=== PATIENT | male | born 1955 | race Caucasian/White ===

== ENCOUNTER 2018-07-10 10:50 | Outpatient (REF) | payer BC, SELFPAY ==
[2018-07-10 13:08] LABS: Anion Gap 5.7 mmol/L (3-11); BUN 14 mg/dL (7-18); CO2 31.3 mmol/L (21.0-32.0); CREATININE 0.96 mg/dL (0.70-1.30); Chloride 103 mmol/L (98-107); Glucose 92 mg/dL (70-100); Potassium 4.5 mmol/L (3.5-5.1); Sodium 140 mmol/L (136-145)
== END 2018-07-10 11:10 ==
LOC: NCHCN 10:50
PROVIDERS: PCP Internal Medicine; Visit Provider Internal Medicine
DX: I10 Essential (primary) hypertension (principal); R07.89 Other chest pain; F90.0 Attention-deficit hyperactivity disorder, predominantly inattentive type
CPT/HCPCS: 80048

== ENCOUNTER 2019-12-25 17:36 | Outpatient (REF) | payer OTHER, SELFPAY ==
[2019-12-25 21:24] LABS: Anion Gap 10.2 mmol/L (3-11); BUN 21 mg/dL (7-18); CO2 26.8 mmol/L (21.0-32.0); CREATININE 0.94 mg/dL (0.70-1.30); Calcium 9.9 mg/dL (8.5-10.1); Chloride 105 mmol/L (98-107); Glucose 110 mg/dL (74-106); Potassium 4.3 mmol/L (3.5-5.1); Sodium 142 mmol/L (136-145)
[2019-12-25 21:34] LABS: Hemoglobin A1C 5.8 % (<5.7)
== END 2019-12-25 17:56 ==
LOC: NCHCN 17:36
PROVIDERS: PCP Internal Medicine; Visit Provider Internal Medicine
DX: I10 Essential (primary) hypertension (principal); E78.00 Pure hypercholesterolemia, unspecified; M17.9 Osteoarthritis of knee, unspecified; F41.8 Other specified anxiety disorders; E66.9 Obesity, unspecified; Z00.00 Encounter for general adult medical examination without abnormal findings
CPT/HCPCS: 80048; 83036

== ENCOUNTER 2020-12-23 10:16 | Outpatient (REF) | payer OTHER, SELFPAY ==
[2020-12-23 15:03] LABS: Calculated LDL 183 mg/dL (<100); Cholesterol 253 mg/dL (<200); HDL Cholesterol 41 mg/dL (40-60); Triglyceride 148 mg/dL (<150)
== END 2020-12-23 10:17 | disposition home or self-care (01) ==
LOC: NCHCN 10:16
PROVIDERS: PCP Internal Medicine; Visit Provider Internal Medicine
DX: R73.03 Prediabetes (principal); E78.00 Pure hypercholesterolemia, unspecified
CPT/HCPCS: 80061; 83036

== ENCOUNTER 2020-12-29 00:22 | Outpatient (CLI) | payer OTHER, SELFPAY ==
--- NOTE | 2020-12-29 08:00 | ETT_ITS ---
APPROVED REPORT Exam: Exercise Treadmill Patient Location: Out-Patient Room/Bed: Stress Nurse: Evelin Ward RN Ordering Provider:TREVOR NATHAN, Contact Number: [phone] BMI: 33.90 Baseline Rhythm: Sinus Rhythm Comment: inverted T waves in leads III, V5, V6 Indications: EXERTIONAL CHEST PAIN Medical History Medical History: HTN, HLD, Pre-DM, Obesity, ADD, Depression, Anxiety, Exertional CP Cardiac Medications: Aspirin, Ritalin, Allergies: Pravastatin, Atorvastatin, Simvastatin Cardiac Risk Factors: FHX of CAD, HTN, Hyperlipidemia, DM (pre), Obesity Previous Cardiac Procedures: None Pretest Chest Pain Characteristics: No chest pain Exercise History: Sedentary Physical Disabilities: None Lung Sounds: Clear to auscultation, diminished upper airways Heart Sounds: Regular Stress Test Details Test: Exercise stress testing was performed using a Carson protocol. Rest Stress HR Resting HR Supine: 60 bpm Max Heart Rate (APMHR): 157 bpm Resting HR Standin bpm Target HR (85% APMHR): 133 bpm Max HR Achieved: 146 bpm % of APMHR: 92 Recovery HR: 89 bpm HR response to stress: Normal HR response to stress BP Resting BP Supine: 142/78 mmHg Resting BP Standin/76 mmHg Max BP: 200/84 mmHg Recovery BP: 136/72 mmHg BP response to stress: Normal blood pressure response to stress. ECG Resting ECG: Sinus Rhythm, borderline right axis deviation Ectopy: None Comment: inverted T waves in leads III, V5, V6 Stress ECG: Sinus Tachycardia ST Change: Horizontal ST depression, Downsloping ST depression Lead(s): II, aVF, V4 Stage: [address] Deviation: 2 mm Arrhythmia: unifocal PVCs, PACs Comment: deepening T wave inversions in leads III, V5, V6 Lead(s): II, aVF, V4 Recovery ST Deviation: 3 mm Recovery Arrhythmia: PVCs, PACs, burst of bigeminal PACs Comment: deepening T wave inversions in leads III, V5, V6; T wave changes returning to baseline by mi nute 15 into recovery period. Clinical Reason for Termination: Fatigue Stress Symptoms: Dyspnea, General Fatigue Exercise duration: 09 min07 sec Highest Stage Reached: Stage 4: 4.2 mph at 16% grade. Exercise capacity: 10.34 METs Jaramillo Treadmill Score: -6 Rate Pressure Product: [id number] Stress ECG Conclusion 1. Resting electrocardiogram showed nondiagnostic ST-T abnormality 2. Patient exercised on the Acrson protocol and completed a workload of 10.34 METS, limited by fatigue and shortness of breath. 3. Normal heart rate and blood pressure response to exercise. The patient achieved 92% of predicted heart rate for age 4. Electrocardiographically there was approximately 1.5 to [address] depression noted in the inferio r and anterolateral leads at peak exercise. In recovery the patient developed more prominent inferio r and anterolateral ST-T abnormalities which persisted through minute 15 of recovery. This is consis tent with myocardial ischemia 5. Atrial and ventricular ectopy was described 6. Suggest repeat with imaging if clinically indicated Jaramillo Treadmill Score is -6 which is Moderate risk. Stress Test Summary STAGE Time (mins) Speed (mph) Grade (%) HR BP SYMPTOMS METS Supine 60 142/78 Standing 68 143/76 1 3 1.7 10 117 162/82 4.6 2 6 2.5 12 135 168/86 7 3 9 3.4 14 146 mod SOB 10.2 1 min recovery 132 182/72 3 min recovery 103 200/84 6 min recovery 94 172/80 9 min recovery 90 142/74 12 min recovery 89 136/72
== END 2020-12-29 00:42 ==
PROVIDERS: PCP Internal Medicine; Visit Provider Internal Medicine
DX: R07.89 Other chest pain (principal); Z82.49 Family history of ischemic heart disease and other diseases of the circulatory system; I10 Essential (primary) hypertension; E78.5 Hyperlipidemia, unspecified; R73.03 Prediabetes; E66.9 Obesity, unspecified; I49.3 Ventricular premature depolarization; I49.1 Atrial premature depolarization
CPT/HCPCS: 93017

== ENCOUNTER 2021-01-15 00:54 | Outpatient (CLI) | payer OTHER, SELFPAY ==
--- NOTE | 2021-01-15 09:15 | DI.NM_ITS ---
APPROVED REPORT Exam: Exercise Treadmill Patient Location: Out-Patient Room/Bed: Stress Nurse: Evelin Ward RN Ordering Provider:TREVOR NATHAN, Contact Number: BMI: 33.90 Baseline Rhythm: Sinus Rhythm Comment: w/ PACs Indications: Positive cardiac stress test, Exertional chest pain Medical History Medical History: Prediabetes, HTN, Hypercholesterolemia, Obesity, ADHD, Arthritis, Depression, Anxiet y Cardiac Medications: Aspirin, Rosuvastatin Allergies: Simvastatin, Atorvastatin, Pravastatin Cardiac Risk Factors: HTN, Hyperlipidemia, DM, FHX of CAD, Obesity Previous Cardiac Procedures: None Pretest Chest Pain Characteristics: No chest pain Exercise History: Sedentary Physical Disabilities: None Lung Sounds: Clear to auscultation Heart Sounds: Regular Stress Test Details Test: Exercise stress testing was performed using a Carson protocol. Nuclear Acquisition: Rest Tc-99m/Stress Tc-99m 1 day Rest Isotope: Tc-99m Sestamibi. Dose: 11.0 Date: 01/15/2021 Injection Time: 0945 Stress Isotope: Tc-99m Sestamibi. Dose: 47.5 Date: 01/15/2021 Injection Time: 1140 HR Resting HR Supine: 60 bpm Max Heart Rate (APMHR): 157.112857 bpm Resting HR Standin bpm Target HR (85% APMHR): 133.976441 bpm Max HR Achieved: 146 bpm % of APMHR: 92.99 Recovery HR: 90 bpm HR response to stress: Normal HR response to stress BP Resting BP Supine: 170/82 mmHg Resting BP Standin/74 mmHg Max BP: 210/82 mmHg Recovery BP: 138/70 mmHg BP response to stress: Normal blood pressure response to stress. ECG Resting ECG: Sinus Rhythm Ectopy: PACs Stress ECG: Sinus Tachycardia ST Change: Horizontal ST depression Lead(s): II, III, aVF, V6 Stage: [address] Deviation: 1-2 mm Arrhythmia: PVCs and PACs Recovery ECG: Sinus Rhythm Recovery ST Change: Horizontal ST depression Lead(s): II, III, aVF, V6 Recovery ST Deviation: 1-2 mm Recovery Arrhythmia: PACs Comment: ST depressions returning to baseline after 15 min into recovery period Clinical Reason for Termination: Fatigue Stress Symptoms: General Fatigue Exercise duration: 9 min59 sec Highest Stage Reached: Stage 4: 4.2 mph at 16% grade. Exercise capacity: 11.76 METs Jaramillo Treadmill Score: 8.7 Rate Pressure Product: 04013 Stress ECG Conclusion 1. The resting electrocardiogram showed poor R wave progression 2. Patient exercised on the Carson protocol and completed a workload of 11.76 METS, stopping due to fa tigue 3. Normal heart rate and blood pressure response to exercise. Patient achieved 92% of predicted hear t rate for age 4. Electrocardiographically the test was consistent with myocardial ischemia, with ST depression note d in the inferior and anterolateral leads at peak exercise which became downsloping in recovery 5. Sporadic atrial and ventricular ectopic beats seen Jaramillo Treadmill Score is 8.7 which is Low risk. Stress Test Summary STAGE Time (mins) Speed (mph) Grade (%) HR BP SYMPTOMS METS Supine 60 170/82 Standing 71 160/74 1 3 1.7 10 101 180/78 4.6 2 6 2.5 12 115 204/74 7 3 9 3.4 14 140 210/82 10.2 1 min recovery 129 192/62 3 min recovery 108 204/78 6 min recovery 95 178/72 9 min recovery 92 138/70 12 min recovery 90 Patient does not endorse any symptoms during treadmill test or during recovery period. MPI Conclusion Normal myocardial perfusion. No evidence of ischemia or prior infarction EF 57%, normal wall motion Radiologist Interpretation Radiologist agrees with Signal Worker Helper's Interpretation. Radiologist Interpretation by: Shine Cai MD Interpretation Date/Time: 01/16/2021 08:42:14
== END 2021-01-15 01:14 ==
PROVIDERS: PCP Internal Medicine; Visit Provider Internal Medicine
DX: R94.39 Abnormal result of other cardiovascular function study (principal); I49.1 Atrial premature depolarization; I10 Essential (primary) hypertension; E78.5 Hyperlipidemia, unspecified; E11.9 Type 2 diabetes mellitus without complications; Z82.49 Family history of ischemic heart disease and other diseases of the circulatory system; E66.9 Obesity, unspecified; Z68.33 Body mass index [BMI] 33.0-33.9, adult; I25.5 Ischemic cardiomyopathy; I49.3 Ventricular premature depolarization
CPT/HCPCS: 78452; 93017

== ENCOUNTER 2021-12-21 13:21 | Outpatient (REF) | payer OTHER, SELFPAY ==
--- OUTSIDE RECORDS SUMMARY | 2021-12-21 13:39 | XMS_ITS | Clinical Summary ---
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
--- OUTSIDE RECORDS SUMMARY | 2021-12-21 13:39 | XMS_ITS | Encounter Summary ---
:1955 Author Organization [facility] Address [address] [place] [address] Care Team Providers Name Role Phone Antonio Soriano MD Primary Care Provider Encounter Details Date Type Department Care Team Description 08/04/2015 Hospital Encounter [facility] [place], [place] [address] [facility] [address] [place] [address] [place] [address] Social History Tobacco Use Types Packs/Day Years Used Date Never Assessed Sex Assigned at Date Recorded Not on file documented as of this encounter Discharge Diagnoses Diagnosis Z01.89 Encounter for other specified spe cial examinations-Z01.89[ICD-10-CM] documented in this encounter Discharge Disposition Disposition Code Departure Means Destination Auto Discharge Home documented in this encounter Plan of Treatment Not on filedocumented as of this encounter Procedures Procedure Name Priority Date/Time Associated Diagnosis Comme nts CERVICAL SPINE 4 OR 08/04/2015 17:27 Resu lts for this MORE VIEWS EDT procedure are i n the results section. documented in this encounter Results CERVICAL SPINE 4 OR MORE VIEWS (08/04/2015 17:27 EDT) Anatomical Region Laterality Modality Other Specimen Narrative [facility] - 08/04/2015 17:40 EDT CERVICAL SPINE 4 OR MORE VIEWS ??08/04/2015 5:27 PM Signs and Symptoms/Comments: ?? NECK PAIN, RIGHT. 6 views of the cervical spine are review ed without comparisons. FINDINGS: There is a grade 1 anterolisth esis of C3 on C4. ??There are marked hypertrophic degenerative changes at C5-6 where there are both prominent anterior and small gas distribution supervisor ior osteophytes. ??There is marked disc space narrowing at C5-6 and, partially visible, and C6-7. ??Oblique views demonstrate minima l foraminal encroachment at C6-7 on the right. ??Visualized cervical soft tissues are unremarkable. IMPRESSION: Marked spondylitic changes a t C5-C6-C7. Procedure Note Pool Norris MD - 08/04/2015 CERVICAL SPINE 4 OR MORE VIEWS 08/04/2015 5:27 PM Signs and Symptoms/Comments: NECK PAIN, RIGHT. 6 views of the cervical spine are review ed without comparisons. FINDINGS: There is a grade 1 anterolisth esis of C3 on C4. There are marked hypertrophic degenerative changes at C5-6 where there are both prominent anterior and small gas distribution supervisor ior osteophytes. There is marked disc space narrowing at C5-6 and, partially visible, and C6-7. Oblique views demonstrate minimal foraminal encroachment at C6-7 on the right. Visualized cervical s oft tissues are unremarkable. IMPRESSION: Marked spondylitic changes a t C5-C6-C7. 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
[2021-12-21 19:09] LABS: Estimated GFR 84.05 (mL/min/1.73m2)
== END 2021-12-21 13:22 | disposition home or self-care (01) ==
LOC: NCHCN 13:21
PROVIDERS: PCP Internal Medicine; Visit Provider Internal Medicine
DX: Z20.89 Contact with and (suspected) exposure to other communicable diseases (principal)
CPT/HCPCS: 82565

== ENCOUNTER 2022-01-05 11:06 | Outpatient (REF) | payer OTHER, SELFPAY ==
[2022-01-05 16:46] LABS: ALT 54 U/L (16-63); AST 29 U/L (15-37); Albumin 4.1 g/dL (3.4-5.0); Alkaline Phosphatase 128 U/L (46-116); Anion Gap 9.6 mmol/L (3-11); BUN 16 mg/dL (7-18); Bilirubin, Total 0.6 mg/dL (0.2-1.0); CO2 25.4 mmol/L (21.0-32.0); Calcium 9.4 mg/dL (8.5-10.1); Calculated LDL 225 mg/dL (<100); Chloride 104 mmol/L (98-107); Cholesterol 291 mg/dL (<200); Estimated GFR 84.05 (mL/min/1.73m2); Glucose 102 mg/dL (74-106); HDL Cholesterol 45 mg/dL (40-60); Potassium 4.6 mmol/L (3.5-5.1); Sodium 139 mmol/L (136-145); Total Protein 7.3 g/dL (6.4-8.2); Triglyceride 107 mg/dL (<150)
[2022-01-05 22:59] LABS: PSA, Screening 0.5 ng/mL (<=4.5)
== END 2022-01-05 11:07 | disposition home or self-care (01) ==
LOC: NCHCN 11:06
PROVIDERS: PCP Internal Medicine; Visit Provider Internal Medicine
DX: Z00.00 Encounter for general adult medical examination without abnormal findings (principal); I10 Essential (primary) hypertension; R73.03 Prediabetes; F41.8 Other specified anxiety disorders; F90.0 Attention-deficit hyperactivity disorder, predominantly inattentive type; E66.9 Obesity, unspecified; Z12.5 Encounter for screening for malignant neoplasm of prostate
CPT/HCPCS: 80053; 80061; 84153; 83036

== ENCOUNTER 2022-05-21 08:46 | Day surgery (SDC) | payer OTHER, SELFPAY ==
--- NOTE | 2022-05-20 20:05 | PDOC.DSDIS_ITS ---
Date of service: 05/21/22 Time of Service: 12:55 Discharge Plan Disposition Patient Disposition: Home Condition: Good Discharge Details Reason For Visit: Left inguinal hernia repair Attending Provider: Feliberto Yeboah Primary Care Provider: Antonio Soriano Home Meds and New Rx's Prescriptions: New tramadol 50 mg tablet 50 mg PO Q8H PRNQty: 12 0RF Rx Instructions: Take 1 tablet by mouth up to every 8 hours as needed for severe pain. Do not drive while using this medication. Continued Caltrate + D3 Plus Minerals 300 mg-800 unit -25 mg-0.5 mg tablet 1 tab PO DAILY aspirin [Adult Aspirin Regimen] 81 mg tablet,delayed release (DR/EC) 81 mg PO DAILY betamethasone valerate 0.1 % cream 1 applic topical BID PRN ketoconazole 2 % cream 1 applic topical BID pyridoxine (vitamin B6) 100 mg tablet 100 mg PO DAILY ascorbate calcium (vitamin C) 500 mg tablet 500 mg PO DAILY methylphenidate HCl [Ritalin] 20 mg tablet 20 mg PO TID naproxen [EC-Naprosyn] 500 mg tablet,delayed release (DR/EC) 500 mg PO BID cod liver oil Capsule 1 cap PO DAILY multivitamin Tablet 1 tab PO DAILY rosuvastatin 20 mg tablet 20 mg PO DAILY Patient Comments: TAKE ONE TABLET BY MOUTH EVERY DAY Discharge Instructions Additional Instructions: Aristeo, we were able to repair your hernia without any difficulty today. The operation went smoothly. You will notice some increased pain over the next day or 2. Do not be alarmed by this. I have included a prescription to help with pain if Tylenol and ibuprofen are insufficient. If you need anything at all, please do not hesitate to contact us. Otherwise we will see you in the office in routine follow-up on the . 1. Resume all of your medications. 2. Okay to use tylenol and ibuprofen over the counter as needed. Use tramadol as needed for severe pain. 3. Leave bandage in place for 24 hours, then remove. 4. Shower with warm soapy water. Pat dry. Use a bandaid if needed to protect your clothing. 5. No soaking or tub baths until I see you in the office. 6. No heavy lifting until I see you in the office. 7.Call the office (or go directly to the emergency room after hours) if you notice any of the following: Develop chills (warm to touch), or if you have a thermometer and your temperature is above 101 Difficulty breathing or difficultly swallowing Persistent vomiting Any bleeding ? exceeding one tablespoon 8. Call your physician if the site where your intravenous was started becomes red, swollen, painful, and warm to touch. Stand Alone Forms: Олег Schultz (DSU) Referrals: Feliberto Yeboah MD [ [facility] ST[facility]FF PHYSICIAN] - (June 02 at 7:30 AM) Activity:: No heavy lifting Remove Dressings/Wound Care:: 24 hours Shower/Bathe:: 24 hours Diet:: As Tolerated Discharge Orders Discharge Orders: Discharge Order (Routine); Ordered 05/20/22 Ordered By: Feliberto Yeboah DS: Diagnosis Discharge Diagnosis (1) Left inguinal hernia: Status: Acute
--- NOTE | 2022-05-20 20:08 | ROE_ITS ---
Date of service: 05/21/22 Time of Service: 12:59 Operative Note Operative Note DATE OF PROCEDURE: 05/21/22 PRE-OP DIAGNOSIS: Left inguinal hernia POST-OP DIAGNOSIS: same PROCEDURE: Left inguinal hernia repair with mesh SURGEON: Feliberto Yeboah CUSHION SPRING ASSEMBLER: Karen Hansen ANESTHESIA TYPE: Local By Surgeon and General LMA/ETT Refer to Anesthesia Record ESTIMATED BLOOD LOSS: 25 COMPLICATIONS: None Patient was transported to: PACU Patient's condition: stable Indications: Abram is a 67 year old man with a painful left inguinal hernia Procedure Description: I began by confirming the correct site with the patient. General endotracheal anesthesia was then induced, and the anesthesia specialist performed a ultrasound-guided left-sided tap block. The surgical site was then prepped and draped in the usual fashion. I began by making an oblique incision over the left inguinal region. I dissected down through the skin to the deep fascia. Next, I incised the fascia along the length of the inguinal canal to the external ring. I then carefully identified the ilioinguinal nerve and sharply divided. Once this was complete, I bluntly dissected the shelving edge of the inguinal ligament down towards the pubic tubercle. Here, I encircled all cord structures with a Tyesha drain. Next, I began dissecting the specific cord structures. Great care was taken to spare the vas deferens and the blood supply to the testicle. Next, I isolated the hernia sac from the other inguinal structures. I reduced it back to its normal anatomic position. I then used a Bard PerFix light mesh plug to obliterate the defect at the internal ring. I fixed in place with interrupted Prolene stitches. Next, I buttressed the posterior floor of the inguinal canal with a large mesh patch. I started by fixing it to the pubic tubercle. Next, I used Prolene sutures to affix it to the shelving edge of the inguinal ligament and the conjoined tendon. Laterally I tacked it to the transversalis fascia and reconstructed an internal ring without any strain on the cord structures. Once this was complete, I irrigated the surgical field. It appeared hemostatic. I then closed the anterior portion of the fascia to reconstruct the front wall of the inguinal canal. I did this with interrupted Vicryl stitches. Once again, I irrigated the surgical field and inspected for hemostasis. Finally, I approximated the superficial fascia and the deep layers of the skin with absorbable suture. Skin was closed with running subcuticular stitches. Bandages were applied, the patient was awakened and transferred to the recovery unit.
[2022-05-21] VITALS (7 sets, daily range): BP systolic 107–156; BP diastolic 60–75; PULSE 56–63; RESP 16–20; TEMP 36.2–36.6; O2SAT 94–100; BMI 33.4
[2022-05-21] MEDS: Gabapentin 300 MG CAP 600 MG PO (10:19)
[2022-05-21] MEDS: Celecoxib 200 MG CAP PO (10:20)
[2022-05-21] MEDS: Acetaminophen 500 MG TAB 1000 MG PO (10:20)
[2022-05-21] MEDS: Lactated Ringers 1,000 ML 80 ML IV (10:29)
--- NOTE | 2022-05-21 10:35 | ANES.PREOP_ITS ---
General Info Date of Service Date Performed: 05/21/22 Height: 5 ft 8 in Weight: 99.8 kg Body Mass Index (BMI): 33.4 Surgical Procedure: Operation Date: 05/21/22 11:10 Proposed Procedure Side Surgeon p Herniorrhaphy Inguinal w/Mesh Left Feliberto Yeboah MD Meds Allergies and Home Medications Allergies Allergy/AdvReac Type Severity Reaction Status Date / Time atorvastatin Allergy Mild unknown Verified 05/21/22 09:18 pravastatin [From Pravachol] Allergy Mild unknown Verified 05/21/22 09:18 simvastatin Allergy Mild unknown Verified 05/21/22 09:18 Home Medication Medication Instructions Recorded ascorbate calcium (vitamin C) 500 500 mg PO DAILY 01/14/20 mg tablet aspirin 81 mg tablet,delayed 81 mg PO DAILY 01/14/20 release (Adult Aspirin Regimen) betamethasone valerate 0.1 % 1 applic topical BID PRN 01/14/20 topical cream cod liver oil 1 cap PO DAILY 01/14/20 ketoconazole 2 % topical cream 1 applic topical BID 01/14/20 methylphenidate HCl 20 mg tablet 20 mg PO TID 01/14/20 (Ritalin) naproxen 500 mg tablet,delayed 500 mg PO BID 01/14/20 release (EC-Naprosyn) pyridoxine (vitamin B6) 100 mg 100 mg PO DAILY 01/14/20 tablet multivitamin 1 tab PO DAILY 02/01/22 calcium carb 300 mg-D3 800 1 tab PO DAILY 02/10/22 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 0.5 mg-ev-Zn tablet (Caltrate + D3 Plus Minerals) rosuvastatin 20 mg tablet 20 mg PO DAILY 05/19/22 Current Visit Medications: Current Medications Generic Name Dose Route Start Last Admin Trade Name Freq PRN Reason Stop Dose Admin Acetaminophen 1,000 mg 05/21/22 06:00 05/21/22 10:20 Acetaminophen 500 Mg Tab PO 06/20/22 23:59 1,000 mg PREOP MADDIE Administration Celecoxib 200 mg 05/21/22 06:00 05/21/22 10:20 Celecoxib 200 Mg Cap PO 06/20/22 23:59 200 mg PREOP MADDIE Administration Gabapentin 600 mg 05/21/22 06:00 05/21/22 10:19 Gabapentin 300 Mg Cap PO 05/21/22 16:00 600 mg PREOP MADDIE Administration Ringer's Solution 1,000 mls @ 80 mls/hr 05/21/22 06:00 05/21/22 10:29 IV 05/21/22 23:59 80 mls/hr INFUSION MADDIE Administration Cefazolin Sodium/Dextrose 2 gm in 50 mls @ 100 mls/hr 05/21/22 06:00 Ancef Duplex IVPB 05/21/22 23:59 PREOP MADDIE IV Miscellaneous Supplies 1 each 05/21/22 06:00 Iv Access IV 05/21/22 23:59 DIRECTED MADDIE Morphine Sulfate 2 mg 05/20/22 20:10 Morphine 4 Mg/Ml Syr IVP Q1H PRN PRN Sodium Chloride 0 ml 05/21/22 06:00 Normal Saline Flush 10 Ml Syr IV 05/21/22 23:59 PRN PRN Sodium Chloride 0 ml 05/21/22 06:00 Normal Saline 10 Ml Vial IJ 05/21/22 23:59 DIRECTED PRN Sterile Water 0 ml 05/21/22 06:00 Water,Injection,Sterile 10 Ml Vial IJ 05/21/22 23:59 DIRECTED PRN Tramadol HCl 100 mg 05/20/22 20:10 Tramadol 50 Mg Tab PO Q6H PRN PRN Pain PFSH Active Problems Active Problems: Problem Status Onset Code ADHD F90.9 Arthritis M19.90 Prediabetes R73.03 Screening for colon cancer Z12.11 Skin lesion L98.9 Hemorrhoids K64.9 Obesity E66.9 Hypertension I10 Hypercholesterolemia E78.00 Left inguinal hernia K40.90 Depression F32.A Medical History Medical History Exertional chest pain History of exposure to infectious disease Positive cardiac stress test Surgical History Surgical History (Updated 05/21/22 @ 09:17 by Gisella Barber RN) History of colonoscopy (~07/25/09) Hx of appendectomy S/P tonsillectomy Tobacco Smoking/Tobacco Use Status: Never Alcohol Alcohol Intake: current Alcohol intake frequency: a few times a week Alcohol type: beer Substance Use Substance use: Never Substance use type: does not use Vital Signs and Lab Results Vital Signs Most Recent Vital Signs in EMR: Most Recent Vital Signs Temp Pulse Resp BP Pulse Ox 36.6 C 60 18 156/70 H 97 05/21/22 08:51 05/21/22 08:51 05/21/22 08:51 05/21/22 08:51 05/21/22 08:51 Lab Results Blood Type / Crossmatch: No Data to Display Complete Blood Count: No Data to Display Complete Metabolic Panel: No Data to Display Liver Function Panel: No Data to Display Coagulation Panel: No Data to Display Cardiac Panel: No Data to Display Arterial Blood Gas: No Data to Display Venous Blood Gas: No Data to Display Pancreas Panel: No Data to Display Thyroid Panel: No Data to Display Infectious Disease: No Data to Display Blood Cultures: No Data to Display Toxicology Panel: No Data to Display Imaging and Studies Imaging and Studies Study information below may be from another EMR and interpreted by another provider. Please see original notes in EMR for more complete details. Stress Test Summary: 01/15/21: poor r wave progression, ~12 METS. 92% of predicted HR achieved. ECG consistent with ischemia with ST depression noted in the inferior and anterolateral leads. Jaramillo score of 8.7/low risk. MPI with no signs of ischemia or infarction, LVEF 57%. Anesthesia Assessment and Plan Anesthesia History Personal History: No History of Anesthesia Complications Family History: No Family History of Anesthesia Complications Exercise Tolerance Exercise Tolerance: Metabolic Equivalents>4 Cardiac & Pulmonary Exam Cardiac Exam: Normal S1/S2 Heart Sounds Pulmonary Exam: Clear Bilateral Breath Sounds Implantable Cardiac Device Does patient have a Pacemaker or an ICD?: No Airway Exam Known Difficult Airway: No Mallampati Class: 2 Mouth Opening: Normal (> 3cm) Thyromental Distance: Greater than 3 cm Facial Hair: Full Caicedo Neck Range of Motion: Full ROM Neck Circumference: Thick Teeth Condition: Normal Dentition ASA Classification ASA Score: ASA 2 Emergency Case?: No NPO Status NPO Status: NPO Clears >2 hours, Solids >8 hours Anesthesia Plan Resuscitation Status: Full Code Anesthesia Technique: General Anesthesia Airway Planned: LMA Pain Management: Surgeon and patient request nerve block Monitors Used: Standard Monitors Preoperative Comments:: 67 yo male for hernia repair. Sig PMHx: exertional chest pain (had a stress test with positive ECG, and an MPI was performed with no evidence of ischemia, he states no further testing was advised and he was started on a statin. His chest pain is on the right side (had some yesterday) and primarily occurs at rest but can happen with exertion), preDM (A1c 6.0%), HTN (does not appear to be on medication for this), depression/ADHD (methylphenidate). Denies GERD (typically only with certain foods). Plan: GA, +/- nerve block.
[2022-05-21] MEDS: ceFAZolin 2 GM/50 ML BAG IVPB (11:27)
[2022-05-21] MEDS: Bupivacaine 0.25% Pres-Free W/EPI 30 ML VIAL (11:41)
--- NOTE | 2022-05-21 12:29 | W.ANESNERVE ---
Nerve Block Single Injection Procedure Date and Time Date Performed: 05/21/22 Procedure Start: 11:28 Location Where Procedure Performed Procedure Location: Operating Room Procedure Stop: 11:37 Reason Performed: Postoperative Analgesia Requesting Provider: Feliberto Yeboah Timeout Performed Timeout Performed: Yes Monitoring Used ECG, Blood Pressure, SpO2 and ETCO2 Sterility Sterility: Hand Hygiene, Surgical Cap, Surgical Mask, Sterile Gloves and Chlorhexidine Sedation Given During Procedure Sedation Given (Indicate Dose Given): No Sedation given Patient Mental Status Patient Mental Status: Performed under general anesthesia Nerve Block 1st Nerve Block: Laterality: Left Block Type: TAP Unilateral Ultrasound Image Saved?: Yes Needle / Catheter Used: 100mm SonoPlex II Local Anesthetic Bolus (Indicate Dose Given): Bupivacaine 0.25% Dose:: 30 ml Additives (Indicate Dose Given): None Ultrasound: Sterile probe cover and gel used Nerve Stimulator: Not Used Paresthesia: None Procedure Tolerated: No Complications and Patient tolerated well Procedure Outcome: Successful Performed By: Braden Hanna
--- NOTE | 2022-05-21 13:34 | W.ANESPOSTOP ---
Postoperative Evaluation Date, Time and Location Date Performed: 05/21/22 Time Performed: 13:34 Patient Location: PACU Vital Signs Most Recent Imported Vital Signs: Most Recent Vital Signs Temp Pulse Resp BP Pulse Ox 36.4 C L 57 L 18 141/60 H 97 05/21/22 13:20 05/21/22 13:20 05/21/22 13:20 05/21/22 13:20 05/21/22 13:20 Pain Score Most Recent Pain Score: Most Recent Pain Score Pain Level 1 05/21/22 13:20 Assessment Mental Status: Awake (Alert & Oriented to Patient Baseline) Airway and Respiratory Function: Patent airway with normal (patient baseline) respiratory exam Cardiovascular Function: Hemodynamically Stable Hydration Status: Adequately Hydrated Nausea & Vomiting: No Nausea or Vomiting Pain: Pain is tolerable per patient Peripheral Nerve Block: Regional nerve block not resolved at time of post operative discharge
== END 2022-05-21 14:33 | disposition home or self-care (01) ==
PROVIDERS: PCP Internal Medicine; Visit Provider Surgery
PROC: (CPT 49505; principal; 2022-05-21 11:00)
DX: K40.90 Unilateral inguinal hernia, without obstruction or gangrene, not specified as recurrent (principal)
CPT/HCPCS: 49505; 76942; C1781; J0690; J1100; J2405; J2704; J3010

== ENCOUNTER 2022-05-24 17:18 | Outpatient (REF) | payer OTHER, SELFPAY ==
[2022-05-24 15:35] LABS: Calculated LDL 72 mg/dL (<100); Cholesterol 164 mg/dL (<200); HDL Cholesterol 47 mg/dL (40-60); Triglyceride 225 mg/dL (<150)
== END 2022-05-24 17:19 | disposition home or self-care (01) ==
LOC: NCHCN 17:18
PROVIDERS: PCP Internal Medicine; Visit Provider Internal Medicine
DX: E78.00 Pure hypercholesterolemia, unspecified (principal)
CPT/HCPCS: 80061

== ENCOUNTER 2023-03-24 14:08 | Outpatient (REF) | payer OTHER, SELFPAY ==
[2023-03-24 21:11] LABS: Anion Gap 4.9 mmol/L (3-11); BUN 19 mg/dL (7-18); CO2 31.1 mmol/L (21.0-32.0); CREATININE 1.1 mg/dL (0.70-1.30); Calcium 9.1 mg/dL (8.5-10.1); Chloride 106 mmol/L (98-107); Estimated GFR 74.04 (mL/min/1.73m2); Glucose 134 mg/dL (74-106); Potassium 5.3 mmol/L (3.5-5.1); Sodium 142 mmol/L (136-145)
== END 2023-03-24 14:09 | disposition home or self-care (01) ==
LOC: NCHCN 14:08
PROVIDERS: PCP Internal Medicine; Visit Provider Family Medicine
DX: I10 Essential (primary) hypertension (principal); R73.03 Prediabetes
CPT/HCPCS: 80048; 83036

== ENCOUNTER 2023-04-11 16:14 | Outpatient (REF) | payer OTHER, SELFPAY ==
[2023-04-11 22:20] LABS: Anion Gap 8.2 mmol/L (3-11); BUN 20 mg/dL (7-18); CO2 29.8 mmol/L (21.0-32.0); CREATININE 1.1 mg/dL (0.70-1.30); Calcium 9.5 mg/dL (8.5-10.1); Chloride 104 mmol/L (98-107); Estimated GFR 74.04 (mL/min/1.73m2); Glucose 95 mg/dL (74-106); Potassium 5.3 mmol/L (3.5-5.1); Sodium 142 mmol/L (136-145)
== END 2023-04-11 16:15 | disposition home or self-care (01) ==
LOC: NCHCN 16:14
PROVIDERS: PCP Internal Medicine; Visit Provider Family Medicine
DX: E87.5 Hyperkalemia (principal); I10 Essential (primary) hypertension
CPT/HCPCS: 80048

== ENCOUNTER 2023-06-29 09:51 | Outpatient (REF) | payer OTHER, SELFPAY ==
[2023-06-29 15:15] LABS: Anion Gap 11.6 mmol/L (3-11); BUN 19 mg/dL (7-18); CO2 25.4 mmol/L (21.0-32.0); CREATININE 1.1 mg/dL (0.70-1.30); Calcium 9.1 mg/dL (8.5-10.1); Calculated LDL 139 mg/dL (<100); Chloride 107 mmol/L (98-107); Cholesterol 210 mg/dL (<200); Estimated GFR 74.04 (mL/min/1.73m2); Glucose 147 mg/dL (74-106); HDL Cholesterol 45 mg/dL (40-60); Potassium 4.2 mmol/L (3.5-5.1); Sodium 144 mmol/L (136-145); Triglyceride 134 mg/dL (<150)
== END 2023-06-29 09:52 | disposition home or self-care (01) ==
LOC: NCHCN 09:51
PROVIDERS: PCP Internal Medicine; Visit Provider Family Medicine
DX: I10 Essential (primary) hypertension (principal); E78.00 Pure hypercholesterolemia, unspecified
CPT/HCPCS: 80048; 80061

== ENCOUNTER 2023-07-07 05:02 | Outpatient (CLI) | payer OTHER, SELFPAY ==
[2023-07-07] MEDS: Levalbuterol HFA 15 GM INH 4 PUFF IH (09:14)
[2023-07-07] MEDS: Inhaler, Assist Device 1 EACH MC (09:14)
--- NOTE | 2023-07-08 11:15 | W.PFT ---
Date of service: 07/07/23 Time of Service: 07:57 Pulmonary Function Test Result Indications: Dyspnea on exertion Interpretation Spirometry: There is no airflow limitation. No bronchodilator response. Lung Volumes: Normal lung volumes Diffusion Capacity: Normal diffusion Airway Pressure: Normal airways resistance Impression Normal pulmonary function testing Clinical Correlation therefore is recommended.
== END 2023-07-07 05:03 | disposition home or self-care (01) ==
LOC: RT 05:02
PROVIDERS: PCP Internal Medicine; Visit Provider Family Medicine
DX: R06.00 Dyspnea, unspecified (principal)
CPT/HCPCS: 94060; 94726; 94729

== ENCOUNTER → 2023-07-14 00:48 | Outpatient (CLI) | payer OTHER, SELFPAY ==
--- NOTE | 2023-07-14 | DI.NM_ITS ---
APPROVED REPORT Exam: Exercise Treadmill Patient Location: Out-Patient Room/Bed: Stress Nurse: Carolann Obregon RN Ordering Provider:SVETA MILA, Contact Number: [phone] BMI: 33.75 Baseline Rhythm: Sinus Rhythm Indications: Chest pain with exertion , Medical History Medical History: Arthritis, depression, HLD, prediabetes, ADHD, HTN Cardiac Medications: Aspirin, losaratan, rosuvastatin Allergies: Statins Cardiac Risk Factors: HTN, HLD, prediabetes, obesity Previous Cardiac Procedures: None Pretest Chest Pain Characteristics: None Exercise History: Indeterminate Physical Disabilities: None Lung Sounds: Clear to auscultation Heart Sounds: Regular Stress Test Details Test: Exercise stress testing was performed using a Carson protocol. Nuclear Acquisition: Rest Tc-99m/Stress Tc-99m 1 day Rest Isotope: Tc-99m Sestamibi. Dose: 10.0 Date: 07/14/2023 Injection Time: 0900 Stress Isotope: Tc-99m Sestamibi. Dose: 31.0 Date: 07/14/2023 Injection Time: 1025 HR Resting HR Supine: 65 bpm Max Heart Rate (APMHR): 154.004101 bpm Resting HR Standin bpm Target HR (85% APMHR): 130.416358 bpm Max HR Achieved: 135 bpm % of APMHR: 87.66 Recovery HR: 85 bpm HR response to stress: Normal HR response to stress BP Resting BP Supine: 184/58 mmHg Resting BP Standin/50 mmHg Max BP: 222/54 mmHg Recovery BP: 176/74 mmHg BP response to stress: Normal blood pressure response to stress. ECG Resting ECG: Sinus Rhythm Ectopy: None Stress ECG: Sinus Tachycardia ST Change: Downsloping ST depression, Horizontal ST depression Lead(s): II, AVF Maximum ST Deviation: 1-2 mm Arrhythmia: Occasional PAC's, Occasional PVC's Recovery ECG: Sinus Rhythm Recovery ST Change: Horizontal ST depression, Downsloping ST depression Recovery ST Deviation: 1-2 mm Recovery Arrhythmia: Occasional PVC's, occasional PAC's Clinical Reason for Termination: Target HR Achieved, Dyspnea, Fatigue Stress Symptoms: Dyspnea, General Fatigue Exercise duration: 07 min13 sec Highest Stage Reached: Stage 3: 3.4 mph at 14% grade. Exercise capacity: 6.3 METs Angina Score: None Jaramillo Treadmill Score: 4.0 Rate Pressure Product: 92446 Stress ECG Conclusion 1. EKG showed minor nondiagnostic ST abnormalities 2. Patient exercised on the Carson protocol completed a workload of 6.3 METS 3. Normal heart rate and blood pressure response to exercise. The patient achieved 88% of predicted heart rate for age 4. At peak exercise the electrocardiographic portion of the test was negative. In recovery diffuse n ondiagnostic ST-T abnormalities were noted 5. There were no significant dysrhythmias 6. See MPI report Jaramillo Treadmill Score is 4.0 which is Moderate risk. Stress Test Summary STAGE Time (mins) Speed (mph) Grade (%) HR BP SpO2 SYMPTOMS METS Supine 65 194/82 Standing 70 180/82 1 3 1.7 10 109 4.5 2 6 2.5 12 129 7 3 9 3.4 14 133 10 1 min recovery 133 184/58 3 min recovery 99 230/50 98 6 min recovery 93 222/54 9 min recovery 85 176/74 MPI Conclusion Myocardial perfusion is normal, no evidence of ischemia or prior infarction Ejection fraction is 59%. Wall motion is normal Radiologist Interpretation Radiologist Interpretation by: Pool Yeboah MD Interpretation Date/Time: 07/15/2023 17:04:25
== END ==
PROVIDERS: PCP Family Medicine; Visit Provider Family Medicine
DX: R07.89 Other chest pain (principal); R94.31 Abnormal electrocardiogram [ECG] [EKG]
CPT/HCPCS: 78452; 93017

== ENCOUNTER 2024-03-08 08:43 | Outpatient (REF) | payer MEDICARE, SELFPAY ==
--- OUTSIDE RECORDS SUMMARY | 2024-03-08 08:45 | XMS_ITS | Encounter Summary ---
Author Organization [facility] Address [facility] [place] [address] Care Team Providers Care Sheet Roller Operator Name Role Phone Mili Segura MD Primary Care Provider [phone] Reason for Visit * Reason Comments Preoperative Cardiovascular Chest Pain Encounter Details Date Type Department Care Team (Late st Contact Info) Description 09/12/2023 9:40 AM EDT Office Visit Cardiology at [address] [address] Martin Webster MD [facility] [place] [address] Chest pain, unspecified type Social History Tobacco Use Types Packs/Day Years Used Date Smoking Tobacco: Never Smokeless Tobacco: Never Tobacco Cessation:Counseling Given: Not Answered Sex and Gender Information Value Date Recorded Sex Assigned at Not on file Gender Identity Not on file Sexual Orientation Not on file documented as of this encounter Last Filed Vital Signs Vital Sign Reading Time Taken Comments Blood Pressure 137/75 09/12/2023 9:46 AM EDT Pulse 54 09/12/2023 9:46 AM EDT per e cg Temperature - - Respiratory Rate - - Oxygen Saturation - - Inhaled Oxygen Concentration - - Weight 102.1 kg (225 lb) 09/12/2023 9:46 AM EDT Height 172.7 cm (5' 8) 09/12/2023 9:46 AM EDT Body Mass Index 34.21 09/12/2023 9:46 AM EDT documented in this encounter Progress Notes * Martin Webster MD - 09/12/2023 9:40 AM EDT Images from the original note were not included. CARDIOLOGY NEW OUTPATIENT PRIMARY CARE PROVIDER: Mili Segura MD PROBLEM LIST: Patient Active Problem List Diagnosis Chest pain 06/2023 ExNST ([facility]): 7:13. Normal HR/BP response. Resting HTN. NSSTTW changes. Scintigraphy withoutphotopenia. Wheezing Attention deficit hyperactivity disorder (ADHD) Depression Hypercholesterolemia Obesity Anxiety Prediabetes MEDICATIONS: Current Outpatient Medications Medication Instructions aspirin EC 81 mg, Oral, DAILY betamethasone valerate (VALISONE) 0.1 % Ointment Topical (Top), 2 TIMES DAILY PRN buPROPion XL (WELLBUTRIN XL) 150 mg, Oral, EVERY MORNING calcium citrate (Calcitrate) 200 mg (950 mg) tablet 1 tablet, Oral, DAILY fish oil-omega-3 fatty acids (FISH OIL) 2 g, Oral, DAILY losartan-hydroCHLOROthiazide (Hyzaar) 50-12.5 mg tablet 1 tablet, Oral, DAILY methylphenidate (RITALIN) 20 mg, Oral, 3 TIMES DAILY multivitamin (THERAGRAN) Tablet 1 tablet, Oral, DAILY naproxen (NAPROSYN) 500 mg, Oral, DAILY PRN rosuvastatin (CRESTOR) 20 mg, Oral, DAILY Subjective: Patient ID: Aristeo Jimenez is a 68 y.o. male. HPI: 68 m presents on referral from GP for chest pain. As part of the evaluation, stress testing has been performed with results as above He states about a year ago he was started on toprol (perhaps for BP and atypical chest pain). [place], he has noted a ccs ii angina that dissiaptes after ~ 30 seconds of rest. On days he does not take toprol (about 50% of the time), he feels much better and in fact has less chest pain. He is approaching fdc, and plans to travel within the [place] afterwards Doesn't check bp at home often + fingers get discolored and feel cold, especially as time to next Ritalin dose comes about Objective: Patient Vitals for the past 24 hrs: Pulse BP 09/12/23 0946 54 137/75 Gen: pleasant male in NAD Cor: rrr, s1/s2 of nl character and amplitude, no pathologic m/r/g. Estimated RAP not elevated. Carotids without bruit. Pulm: CTAB. Normal diaphragmatic movement without use of accessory muscles EKG: nsr, IMI pattern Assessment and Plan: Chest pain Seems rather typical by description (comes about with activity , dissipates with rest); however, itworsening since toprol was started and the non-ischemic NST (I posit the EKG changes were from HTN since the scintigraphyIn was normal) would suggest against obstructive disease. Regardless, I think the first step is to discontinue the toprol, since it has not caused any beneficial effects. He will keep a BP log, and will likely initiate norvasc as next step. In the meantime, reasonable to continue empiric treatment of SIHD with ASA/statin. If chest pain continues, would have a low threshold ofstopping the Ritalin, especially since it is likely provoking some degree of Raynaud's phenomenon. RTC 3 months Martin Webster MD documented in this encounter Miscellaneous Notes * Assessment & Plan Note - Martin Webster MD - 09/12/2023 10:17 AM EDT Associated Problem(s): Chest pain Seems rather typical by description (comes about with activity , dissipates with rest); however, itworsening since toprol was started and the non-ischemic NST (I posit the EKG changes were from HTN since the scintigraphyIn was normal) would suggest against obstructive disease. Regardless, I think the first step is to discontinue the toprol, since it has not caused any beneficial effects. He will keep a BP log, and will likely initiate norvasc as next step. In the meantime, reasonable to continue empiric treatment of SIHD with ASA/statin. If chest pain continues, would have a low threshold ofstopping the Ritalin, especially since it is likely provoking some degree of Raynaud's phenomenon. documented in this encounter Plan of Treatment Not on file documented as of this encounter Procedures Procedure Name Priority Date/Time Associated Diagnosis Comments ECG SCAN 09/12/2023 12:00 AM EDT documented in this encounter Results * Scan Doc: ECG (09/12/2023 12:00 AM EDT) Narrative 09/12/2023 12:00 AM EDT Ordered by an unspecified provider. Scanning Provider MEDIA MGR SCAN EXT O RDR/RSLT documented in this encounter Visit Diagnoses Diagnosis Chest pain, unspecified type documented in this encounter Care Teams Sheet Roller Operator Relationship Specialty Start Date End Date Mili Segura MD [address] [place] [address] PCP - General Family Medicine 09/12/23 documented as of this encounter
--- OUTSIDE RECORDS SUMMARY | 2024-03-08 08:45 | XMS_ITS | Encounter Summary ---
Author Organization [place] [address] Care Team Providers Care Finance Mgr Name Role Phone Mili Segura MD Primary Care Provider [phone] Encounter Details Date Type Department Care Team (Late st Contact Info) Description 01/17/2024 Telephone Cardiology at [address] [address] Krystina Trejo, RN Social History Tobacco Use Types Packs/Day Years Used Date Smoking Tobacco: Never Smokeless Tobacco: Never Sex and Gender Information Value Date Recorded Sex Assigned at Not on file Gender Identity Not on file Sexual Orientation Not on file documented as of this encounter Miscellaneous Notes * Telephone Encounter - Tana Coleman RN - 01/19/2024 10:[address] Webster- OK to continue on norvasc 10. If continues with significant symptoms that prohibit exertion, next step would be cardiac catheterization Relayed above to Aristeo who verbalized understanding. * Telephone Encounter - Krystina Trejo, RN - 01/17/2024 2:15 PM EDT Aristeo called in to give Dr. Webster an update as he was directed to after 4 weeks of med adjustment At last OV he was instructed to increase amlodipine 5 mg to 7.5 mg daily for 2 weeks. He noticed slight improvement in the intensity of symptoms: chest pain, shortness of breath, racingheart Then he increased amlodipine to 10.0 mg daily for the following 2 weeks. He noticed more improvement/ less severity of symptoms: chest pain, shortness of breath, racing heart He acknowledged he understands that Dr. Webster instructed him that this change was not correcting the diagnosed problem of blocked vessel- just relieving symptoms. Please advise documented in this encounter Plan of Treatment Not on file documented as of this encounter Visit Diagnoses Not on filedocumented in this encounter Care Teams Finance Mgr Relationship Specialty Start Date End Date Mili Segura MD [address] [place] [address] PCP - General Family Medicine 09/12/23 documented as of this encounter
--- OUTSIDE RECORDS SUMMARY | 2024-03-08 08:45 | XMS_ITS | Encounter Summary ---
Author Organization [facility] Address [address] [place] [address] Care Team Providers Care Patrol Officer Name Role Phone Antonio Soriano MD Primary Care Provider [phone] Encounter Details Date Type Department Care Team (Latest Contact Info) Description 08/04/2015 16:21 EDT - 08/04/2015 23:59 EDT Hospital Encounter [facility] [address] [place] [address] Antonio Soriano MD [address] [place], [place] [id number] Discharge Disposition: Auto Discharge Social History Tobacco Use Types Packs/Day Years Used Date Smoking Tobacco: Never Assessed Sex and Gender Information Value Date Recorded Sex Assigned at Not on file Legal Sex Male 18:16 EST Gender Identity Not on file Sexual Orientation Not on file documented as of this encounter Discharge Diagnoses Diagnosis Z01.89 Encounter for other specified special examinations-Z01.89[ICD-10-CM] documented in this encounter Discharge Disposition Disposition Code Departure Means Destination Auto Discharge Home documented in this encounter Plan of Treatment Not on file documented as of this encounter Procedures Procedure Name Priority Date/Time Associated Diagnosis Comments CERVICAL SPINE 4 OR MORE VIEWS 08/04/2015 17:27 EDT documented in this encounter Results * CERVICAL SPINE 4 OR MORE VIEWS (08/04/2015 17:27 EDT) Anatomical Region Laterality Modality Other 08/04/2015 17:2 7 EDT 08/04/2015 17:40 EDT Narrative 08/04/2015 17:40 EDT CERVICAL SPINE 4 OR MORE VIEWS ??08/04/2015 5:27 PM Signs and Symptoms/Comments: ?? NECK PAIN, RIGHT. 6 views of the cervical spine are reviewed without comparisons. FINDINGS: There is a grade 1 anterolisthesis of C3 on C4. ??There are marked hypertrophic degenerative changes at C5-6 where there are both prominent anterior and small posterior osteophytes. ??There is marked disc space narrowing at C5-6 and, partially visible, and C6-7. ??Oblique views demonstrate minimal foraminal encroachment at C6-7 on the right. ??Visualized cervical soft tissues are unremarkable. IMPRESSION: Marked spondylitic changes at C5-C6-C7. Procedure Note Pool Norris MD - 08/04/2015 CERVICAL SPINE 4 OR MORE VIEWS 08/04/2015 5:27 PM Signs and Symptoms/Comments: NECK PAIN, RIGHT. 6 views of the cervical spine are reviewed without comparisons. FINDINGS: There is a grade 1 anterolisthesis of C3 on C4. There are marked hypertrophic degenerative changes at C5-6 where there are both prominent anterior and small posterior osteophytes. There is marked disc space narrowing at C5-6 and, partially visible, and C6-7. Oblique views demonstrate minimal foraminal encroachment at C6-7 on the right. Visualized cervical soft tissues are unremarkable. IMPRESSION: Marked spondylitic changes at C5-C6-C7. Antonio Soriano MD IMG DIAGNOSTIC IMAGING ORDERAB LES Final Result documented in this encounter Visit Diagnoses Not on filedocumented in this encounter Care Teams Patrol Officer Relationship Specialty Start Date End Date Antonio Soriano MD [address] [place] [address] PCP - General 01/25/15 documented as of this encounter
--- OUTSIDE RECORDS SUMMARY | 2024-03-08 08:45 | XMS_ITS | Encounter Summary ---
[place] [address] Care Team Providers Care Sales Recruitment Specialist Name Role Phone Mili Segura MD Primary Care Provider [phone] Encounter Details Date Type Department Care Team (Latest Contact Info) Description 09/12/2023 Travel Social History Tobacco Use Types Packs/Day Years Used Date Smoking Tobacco: Never Smokeless Tobacco: Never Sex and Gender Information Value Date Recorded Sex Assigned at Not on file Gender Identity Not on file Sexual Orientation Not on file documented as of this encounter Plan of Treatment Not on file documented as of this encounter Visit Diagnoses Not on filedocumented in this encounter Care Teams Sales Recruitment Specialist Relationship Specialty Start Date End Date Mili Segura MD [address] [place], [place] [id number] PCP - General Family Medicine 09/12/23 documented as of this encounter
--- OUTSIDE RECORDS SUMMARY | 2024-03-08 08:45 | XMS_ITS | Clinical Summary ---
Author Organization [facility] Address [address] [place] [address] Care Team Providers Care Nutritional Health Coach Name Role Phone Antonio Soriano MD Primary Care Provider [phone] Social History Tobacco Use Types Packs/Day Years Used Date Smoking Tobacco: Never Assessed Sex and Gender Information Value Date Recorded Sex Assigned at Not on file Legal Sex Male 18:16 EST Gender Identity Not on file Sexual Orientation Not on file Plan of Treatment Health Maintenance Due Date Last Done Comments Hepatitis C Screen 1955 Fall Risk Screening 2022 COVID-19 Vaccine ( season) 2023 RSV Immunization ( o r 60+ Years) (1 - 1-dose 75+ series) 2032 Care Teams Nutritional Health Coach Relationship Specialty Start Date End Date Antonio Soriano MD [address] [place] [address] PCP - General 01/25/15
--- OUTSIDE RECORDS SUMMARY | 2024-03-08 08:45 | XMS_ITS | Clinical Summary ---
Author Organization [facility] Address [facility] [place] [address] Care Team Providers Care Order Processing Specialist Name Role Phone Mili Segura MD Primary Care Provider [phone] Allergies Active Allergy Reactions Criticality Noted Date Comments Atorvastatin Other (See Comments) Medium 07/26/2023 All statins - GI UPSET and muscle aches Medications Medication Sig Dispensed Refills Start Date End Date Status betamethasone valerate (VALISONE) 0.1 % Ointment Apply topically 2 times daily as needed. Active buPROPion XL (Wellbutrin XL) 150 mg XL 24 hr tablet Take 150 mg by mouth every morning. Active losartan-hydroCHLORO thiazide (Hyzaar) 50-12.5 mg tablet Take 1 tablet by mouth daily. Active multivitamin (THERAGRAN) Tablet Take 1 tablet by mouth daily. Active naproxen (Naprosyn) 500 mg tablet Take 500 mg by mouth daily as needed. Active methylphenidate (Ritalin) 20 mg tablet Take 20 mg by mouth 3 times daily. Active rosuvastatin (Crestor) 20 mg tablet Take 20 mg by mouth daily. Active aspirin EC 81 mg EC (DR) tablet Take 81 mg by mouth daily. Active amLODIPine (Norvasc) 5 mg tablet Take 1 tablet by mouth Daily at Noon. 10/20/2023 Active nitroGLYcerin (Nitrostat) 0.[address] 1 tablet under the tongue every 5 minutes as needed for Chest pain. 25 tablet 12/19/2023 Active Active Problems Problem Noted Date Diagnosed Date Wheezing 07/28/2023 Attention deficit hyperactivity disorder (ADHD) 07/26/2023 Depression 07/26/2023 Hypercholesterolemia 07/26/2023 Obesity 07/26/2023 Anxiety 07/26/2023 Prediabetes 07/26/2023 Chest pain 06/29/2023 Overview (09/12/2023): 06/2023 ExNST ([facility]): 7:13. Normal HR/BP response. Resting HTN. NSSTTW changes. Scintigraphy without photopenia. Assessment & Plan (12/19/2023 10:24 AM EDT): Continues with CCS II angina; not significantly reducing QOL (though it does seem to impede outdoor workflow). He would like to proceed with conservative management, and thus advised titration of Norvasc as tolerated. If continued symptoms, I am pessimistic that further anti-anginals would have much success, and would advise coronary lumenography at that time - Anti-Thrombosis: asa 81 - Anti- Lipemic: crestor 20 - Anti- Anginals: GTN PRN, increase norvasc to 7.5 and then 10 (patient instructions provided Assessment & Plan (09/12/2023 10:17 AM EDT): Seems rather typical by description (comes about with activity , dissipates with rest); however, it worsening since toprol was started and the non-ischemic [...] pain continues, would have a low threshold of stopping the Ritalin, especially since it is likely provoking some degree of Raynaud's phenomenon. Resolved Problems Problem Noted Date Diagnosed Date Resolved Date Second hand smoke exposure 07/28/2023 0 09/12/2023 Stress due to family tension 07/26/2023 09/12/2023 Encounters Date Type Department Care Team Description 01/17/2024 Telephone Cardiology at [address] [phone] Krystina Trejo, RN 12/19/2023 9:40 AM EDT Office Visit Cardiology at [address] [place] [address] Martin Webster MD Chest pain, unspecified type from Last 3 Months Family History Medical History Relation Comments Diabetes Father Heart Disease Father Heart Failure Father Pre-diabetes Father Arthritis Mother Diabetes Mother Pre-diabetes Mother Ovarian Cancer Sister 1 Relation Status Comments Brother 1 Alive Brother 2 Alive Brother 3 Alive Father Mother Sister 1 Sister 2 Alive Sister 3 Alive Sister 4 Alive Social History Tobacco Use Types Packs/Day Years Used Date Smoking Tobacco: Never Smokeless Tobacco: Never Tobacco Cessation:Counseling Given: Not Answered Sex and Gender Information Value Date Recorded Sex Assigned at Not on file Gender Identity Not on file Sexual Orientation Not on file Last Filed Vital Signs Vital Sign Reading Time Taken Comments Blood Pressure 140/71 12/19/2023 9:56 AM EDT Pulse 77 12/19/2023 9:56 AM EDT Temperature - - Respiratory Rate - - Oxygen Saturation - - Inhaled Oxygen Concentration - - Weight 100.2 kg (221 lb) 12/19/2023 9:56 AM EDT Height 172.7 cm (5' 8) 12/19/2023 9:56 AM EDT Body Mass Index 33.6 12/19/2023 9:56 AM EDT Plan of Treatment Health Maintenance Due Date Last Done Comments CT Colonography 1955 Colonoscopy 1955 Colorectal Cancer Screening 1955 FIT DNA 1955 FIT 1955 Sigmoidoscopy (10 year) with FIT yearly 1955 Sigmoidoscopy 1955 Hepatitis C Screening 1975 Tetanus/Diphtheria/Pertussis Vaccines (1 - Tdap) 03/18 Pre-DM monitoring (HgbA1C or FBG) 1997 Zoster vaccine (1 of 2) 2007 Advance Directive 2012 Pneumoccocal Vaccine: 65+ (1 of 1 - PCV) 2022 Covid-19 Vaccine (1 - season) 2023 Influenza (Flu) vaccine (1 o f 1 - Influenza standard series) 11/20/2023 Care Teams Order Processing Specialist Relationship Specialty Start Date End Date Mili Segura MD [address] [place] [address] PCP - General Family Medicine 09/12/23
--- OUTSIDE RECORDS SUMMARY | 2024-03-08 08:45 | XMS_ITS | Encounter Summary ---
Author Organization [facility] [place] [address] Care Team Providers Care Adjunct Art History Instructor Name Role Phone Antonio Soriano MD Primary Care Provider [phone] Encounter Details Date Type Department Care Team (Late st Contact Info) Description 07/28/2023 Abstract Cardiology at [address] [phone] Krystina Trejo, RN Social History [...] on filedocumented in this encounter Care Teams Adjunct Art History Instructor Relationship Specialty Start Date End Date Antonio Soriano MD [address] [place] [address] PCP - General 02/10/10 09/11/23 documented as of this encounter
--- OUTSIDE RECORDS SUMMARY | 2024-03-08 08:45 | XMS_ITS | Encounter Summary ---
Author Organization [facility] [place] [address] Care Team Providers Care Wharf Attendant Name Role Phone Antonio Soriano MD Primary Care Provider Encounter Details Date Type Department Care Team (Late st Contact Info) Description 07/26/2023 Abstract Cardiology at [address] [phone] Krystina Trejo, RN Social History [...] on filedocumented in this encounter Care Teams Wharf Attendant Relationship Specialty Start Date End Date Antonio Soriano MD [address] [place] [address] PCP - General 02/10/10 09/11/23 documented as of this encounter
--- OUTSIDE RECORDS SUMMARY | 2024-03-08 08:45 | XMS_ITS | Encounter Summary ---
Author Organization [facility] [place] [address] Care Team Providers Care Pulp Refiner Operator Name Role Phone Antonio Soriano MD Primary Care Provider [phone] Reason for Visit * Reason Onset Date Comments Referral 07/27/2023 Encounter Details Date Type Department Care Team (Late st Contact Info) Description 07/27/2023 Telephone Cardiology at [address] [phone] Krystina Trejo, apparatus repair mechanic Social History Tobacco Use Types Packs/Day Years Used Date Smoking Tobacco: Never Assessed Sex and Gender Information Value Date Recorded Sex Assigned at Not on file Gender Identity Not on file Sexual Orientation Not on file documented as of this encounter Miscellaneous Notes * Telephone Encounter - Krystina Trejo, RN - 07/27/2023 3:44 PM EDT Images from the original note were not included. [facility] [address] [place] [address], [facility] [place] [address] Aristeo was referred to this cardiology clinic in [place] for chest pain by his PCP Mili Segura MD. Aristeo has been experiencing chest pain with exertion. A nuclear stress test was ordered and this referral. Active Ambulatory Problems Diagnosis Date Noted Attention deficit hyperactivity disorder (ADHD) 07/26/2023 Depression 07/26/2023 Chest pain 06/29/2023 Hypercholesterolemia 07/26/2023 Obesity 07/26/2023 Anxiety 07/26/2023 Prediabetes 07/26/2023 Stress due to family tension 07/26/2023 Wheezing 07/28/2023 Second hand smoke exposure 07/28/2023 Resolved Ambulatory Problems Diagnosis Date Noted No Resolved Ambulatory Problems Past Medical History: Diagnosis Date ADHD Chronic cough Chronic depression Coronary arteriosclerosis Hyperlipidemia Osteoarthritis, knee Past Surgical History: Procedure Laterality Date APPENDECTOMY 1985 COLONOSCOPY 07/25/2009 INGUINAL HERNIA REPAIR Left 05/20/2022 with mesh TONSILLECTOMY 1966 Current Medications betamethasone valerate (VALISONE) 0.1 % Ointment buPROPion XL (Wellbutrin XL) 150 mg XL 24 hr tablet calcium citrate (Calcitrate) 200 mg (950 mg) tablet losartan-hydroCHLOROthiazide (Hyzaar) 50-12.5 mg tablet metoprolol succinate XL (Toprol-XL) 25 mg ER 24 hr tablet multivitamin (THERAGRAN) Tablet naproxen (Naprosyn) 500 mg tablet methylphenidate (Ritalin) 20 mg tablet rosuvastatin (Crestor) 20 mg tablet aspirin EC 81 mg EC (DR) tablet * Telephone Encounter - Krystina Trejo RN - 07/27/2023 3:43 PM EDT ----- Message from Ting Chaudhari sent at 07/25/2023 3:46 PM EDT ----- Referral, Pulmonary Function Test, Office Note, Stress Tests, Phone Note scanned and imaged. documented in this encounter Plan of Treatment Not on file documented as of this encounter Visit Diagnoses Not on filedocumented in this encounter Care Teams Pulp Refiner Operator Relationship Specialty Start Date End Date Antonio Soriano MD [address] [place] [address] PCP - General 02/10/10 09/11/23 documented as of this encounter
--- OUTSIDE RECORDS SUMMARY | 2024-03-08 08:45 | XMS_ITS | Encounter Summary ---
Author Organization [facility] Address [address] [place] [address] Care Team Providers Care Redipper Name Role Phone Antonio Soriano MD Primary Care Provider [phone] Encounter Details Date Type Department Care Team (Late st Contact Info) Description 01/05/2022 Lab Requisition [facility] Pathology & Laboratory Medicine - [address] [id number] Outr Resulting Lab, Provider Social History Tobacco Use Types Packs/Day [...] Procedure Name Priority Date/Time Associated Diagnosis Comments PSA TOTAL, DIAGNOSTIC Routine 01/05/2022 10:50 EDT documented in this encounter Results * PSA TOTAL, DIAGNOSTIC (01/05/2022 10:50 EDT) PSA 0.5 <=4.5 ng/mL 01/05/2022 22:55 EDT [facility] Blood VENOUS BLOOD / Unknown 01/05/2022 10:50 EDT 01/05/2022 21:46 EDT Narrative [facility] - 01/05/2022 22:55 EDT NOTE: Serum PSA concentration should not be interpreted as absolute evidence for the presence or absence of malignant disease. Assayed on Siemens ADVIA Centaur XPT using chemiluminescent technology.??Values obtained by using different assay methods cannot be used interchangeably. us Provider Outr Resulting Lab CHEMISTRY & BLOOD GA S ORDERABLES Final Result [facility] [address] [place] [address] documented in this encounter Visit Diagnoses Not on filedocumented in this encounter Care Teams Redipper Relationship Specialty Start Date End Date Antonio Soriano MD [address] [place], [place] [id number] PCP - General 01/25/15 documented as of this encounter
--- OUTSIDE RECORDS SUMMARY | 2024-03-08 08:45 | XMS_ITS | Referral Summary ---
Author Organization [facility] Address [address] [place], [place] Care Team Providers Care Senior Officer Name Role Phone Antonio Soriano MD Primary Care Provider [phone] Social History Tobacco Use Types Packs/Day Years Used Date Smoking Tobacco: Never Assessed Sex and Gender Information Value Date Recorded Sex Assigned at Not on file Legal Sex Male 18:16 EST Gender Identity Not on file Sexual Orientation Not on file Plan of Treatment Not on file Care Teams Senior Officer Relationship Specialty Start Date End Date Antonio Soriano MD [address] [place] [address] PCP - General 01/25/15
--- OUTSIDE RECORDS SUMMARY | 2024-03-08 08:45 | XMS_ITS | Encounter Summary ---
Author Organization [facility] Address [facility] [place] [address] Care Team Providers Care Decorating Machine Tender Name Role Phone Mili Segura MD Primary Care Provider Reason for Visit * Reason Comments Chest Pain Encounter Details Date Type Department Care Team (Late st Contact Info) Description 12/19/2023 9:40 AM EDT Office Visit Cardiology at [address] [phone] Martin Webster MD [facility] [place] [address] Chest pain, unspecified type Social History Tobacco [...] Mass Index 33.6 12/19/2023 9:56 AM EDT documented in this encounter Patient Instructions * Patient Instructions* Martin Webster MD - 12/19/2023 9:40 AM EDT - Please increase amlodipine to 1.5 tablets per day - after 2 weeks, increase amlodipine to 2 tablets per day if chest sensation persists and blood pressure remains normal or elevated - Please call us in 1 month with symptoms documented in this encounter Progress Notes * Martin Webster MD - 12/19/2023 9:40 AM EDT Images from the original note were not included. Subjective: Patient ID: Aristeo Jimenez is a 68 y.o. male who presents on follow-up for: Chief Complaint Patient presents with Chest Pain HPI Last seen by me 08/2023, at which time no changes were made Intercurrently, amlodipine was added by GP. Sbp remains > 140 more often than not Since then, he continues with similar ccs ii angina, without progression. Current Outpatient Medications Medication Instructions amLODIPine (Norvasc) 5 mg tablet 1 tablet, Oral, DAILY AT NOON aspirin EC 81 mg, Oral, DAILY betamethasone valerate (VALISONE) 0.1 % Ointment Topical (Top), 2 TIMES DAILY PRN buPROPion XL (WELLBUTRIN XL) 150 mg, Oral, EVERY MORNING losartan-hydroCHLOROthiazide (Hyzaar) 50-12.5 mg tablet 1 tablet, Oral, DAILY methylphenidate (RITALIN) 20 mg, Oral, 3 TIMES DAILY multivitamin (THERAGRAN) Tablet 1 tablet, Oral, DAILY naproxen (NAPROSYN) 500 mg, Oral, DAILY PRN nitroGLYcerin (NITROSTAT) 0.4 mg, Sublingual, EVERY 5 MIN PRN rosuvastatin (CRESTOR) 20 mg, Oral, DAILY Patient Active Problem List Diagnosis Chest pain 06/2023 ExNST ([facility]): 7:13. Normal HR/BP response. Resting HTN. NSSTTW changes. Scintigraphy withoutphotopenia. Wheezing Attention deficit hyperactivity disorder (ADHD) Depression Hypercholesterolemia Obesity Anxiety Prediabetes Objective: BP 140/71 (BP Location (NBP): Right arm, Patient Position: Sitting) Pulse 77 Ht 172.7 cm (5' 8) Wt 100.2 kg (221 lb) BMI 33.60 kg/m?? Gen: pleasant male in NAD Cor: rrr, s1/s2 of nl character and amplitude, no pathologic m/r/g. Estimated RAP not elevated. Carotids with normal upstroke without bruit. Pulm: CTAB. Normal diaphragmatic movement without use of accessory muscles Assessment and Plan: Chest pain Continues with CCS II angina; not significantly reducing QOL (though it does seem to impede outdoorworkflow). He would like to proceed with conservative management, and thus advised titration of Norvasc as tolerated. If continued symptoms, I am pessimistic that further anti-anginals would have much success, and would advise coronary lumenography at that time - Anti-Thrombosis: asa 81 - Anti- Lipemic: crestor 20 - Anti- Anginals: GTN PRN, increase norvasc to 7.5 and then 10 (patient instructions provided Pending response to norvasc. To call in ~ 1 month for symptom check. Contingency for cath if symptoms persist at that time Martin Webster MD documented in this encounter Miscellaneous Notes * Assessment & Plan Note - Martin Webster MD - 12/19/2023 10:24 AM EDT Associated Problem(s): Chest pain Continues with CCS II angina; not significantly reducing QOL (though it does seem to impede outdoorworkflow). He would like to proceed with conservative management, and thus advised titration of Norvasc as tolerated. If continued symptoms, I am pessimistic that further anti-anginals would have much success, and would advise coronary lumenography at that time - Anti-Thrombosis: asa 81 - Anti- Lipemic: crestor 20 - Anti- Anginals: GTN PRN, increase norvasc to 7.5 and then 10 (patient instructions provided documented in this encounter Plan of Treatment Not on file documented as of this encounter Visit Diagnoses Diagnosis Chest pain, unspecified type documented in this encounter Care Teams Decorating Machine Tender Relationship Specialty Start Date End Date Mili Segura MD [address] [place] [address] PCP - General Family Medicine 09/12/23 documented as of this encounter
[2024-03-15 02:33] LABS: Methylphenidate Negative ng/mL (Cutoff: 10); Ritalinic Acid 5565 ng/mL (Cutoff: 50)
== END 2024-03-08 08:44 | disposition home or self-care (01) ==
LOC: NCHCN 08:43
PROVIDERS: PCP Family Medicine; Visit Provider Family Medicine
DX: F90.9 Attention-deficit hyperactivity disorder, unspecified type (principal); Z79.899 Other long term (current) drug therapy
CPT/HCPCS: 80360

== ENCOUNTER 2024-06-06 11:11 | Outpatient (RCR) | payer MEDICARE, SELFPAY ==
--- NOTE | 2024-06-06 10:45 | RT.EKG_ITS ---
APPROVED REPORT Exam: Resting ECG Reason for Exam: Baseline Patient Location: O HR:74 bpm ECG Measurements Heart Rate 74 AXIS LA [id number] P [id number] QRSd 100 QRS 84 QT 388 T -25 QTc 431 Conclusion Sinus rhythm Inferior infarct, age indeterminate...Q>35mS, T neg, II III aVF Possible anteroseptal infarct, age indeterminate...Q >35mS, T neg, V1 Nondiagnostic ST-T abnormalities
== END 2024-06-18 23:59 | disposition home or self-care (01) ==
LOC: CR 11:11
PROVIDERS: PCP Family Medicine; Visit Provider Internal Medicine Cardiovascular Disease

== ENCOUNTER 2024-06-18 08:08 | Outpatient (RCR) | payer MEDICARE, SELFPAY | END 2024-06-18 23:59 | disposition home or self-care (01) | LOC: CR 08:08 | PROVIDERS: PCP Family Medicine; Visit Provider Internal Medicine Cardiovascular Disease | DX: I21.11 ST elevation (STEMI) myocardial infarction involving right coronary artery (principal); Z95.5 Presence of coronary angioplasty implant and graft; Z51.89 Encounter for other specified aftercare | CPT/HCPCS: S9472 ==

== ENCOUNTER 2024-06-19 12:08 | Outpatient (REF) | payer MEDICARE, SELFPAY ==
[2024-06-19 16:34] LABS: Anion Gap 6.2 mmol/L (3-11); BUN 17 mg/dL (7-18); CO2 32.8 mmol/L (21.0-32.0); CREATININE 1.1 mg/dL (0.70-1.30); Calcium 9.2 mg/dL (8.5-10.1); Chloride 103 mmol/L (98-107); Estimated GFR 73.58 (mL/min/1.73m2); Glucose 94 mg/dL (74-106); Potassium 4.7 mmol/L (3.5-5.1); Sodium 142 mmol/L (136-145)
[2024-06-19 22:20] LABS: PSA, Screening 0.5 ng/mL (<=4.5)
[2024-06-20 12:14] LABS: Calculated LDL 83 mg/dL (<100); Cholesterol 149 mg/dL (<200); HDL Cholesterol 50 mg/dL (>or=40); Triglyceride 81 mg/dL (<150)
[2024-06-23 11:20] LABS: Testosterone, Total 319 ng/dL (240-950)
== END 2024-06-19 12:09 | disposition home or self-care (01) ==
LOC: NCHCN 12:08
PROVIDERS: PCP Family Medicine; Visit Provider Family Medicine
DX: R73.03 Prediabetes (principal); Z12.5 Encounter for screening for malignant neoplasm of prostate; E78.00 Pure hypercholesterolemia, unspecified
CPT/HCPCS: 80048; 80061; 84153; 84403; 83036

== ENCOUNTER 2024-07-18 08:21 | Outpatient (RCR) | payer MEDICARE, SELFPAY | END 2024-07-18 23:59 | disposition home or self-care (01) | LOC: CR 08:21 | PROVIDERS: PCP Family Medicine; Visit Provider Internal Medicine Cardiovascular Disease | DX: Z95.5 Presence of coronary angioplasty implant and graft (principal); I25.10 Atherosclerotic heart disease of native coronary artery without angina pectoris; Z51.89 Encounter for other specified aftercare | CPT/HCPCS: S9472 ==

== ENCOUNTER 2024-08-17 08:26 | Outpatient (RCR) | payer MEDICARE, SELFPAY | END 2024-08-18 23:59 | disposition home or self-care (01) | LOC: CR 08:26 | PROVIDERS: PCP Family Medicine; Visit Provider Internal Medicine Cardiovascular Disease | DX: I25.82 Chronic total occlusion of coronary artery (principal); Z95.5 Presence of coronary angioplasty implant and graft; Z51.89 Encounter for other specified aftercare | CPT/HCPCS: S9472 ==

== ENCOUNTER 2024-08-31 08:00 | Outpatient (RCR) | payer MEDICARE, SELFPAY | END 2024-09-17 23:59 | disposition home or self-care (01) | LOC: CR 08:00 | PROVIDERS: PCP Family Medicine; Visit Provider Internal Medicine Cardiovascular Disease | DX: Z95.2 Presence of prosthetic heart valve (principal); Z51.89 Encounter for other specified aftercare | CPT/HCPCS: S9472 ==

== ENCOUNTER 2024-09-26 10:52 | Outpatient (REF) | payer MEDICARE, SELFPAY ==
[2024-09-26 16:32] LABS: ALT 46 U/L (16-63); AST 29 U/L (15-37); Albumin 4.3 g/dL (3.4-5.0); Alkaline Phosphatase 158 U/L (46-116); Anion Gap 7.8 mmol/L (3-11); BUN 14 mg/dL (7-18); Bilirubin, Total 0.9 mg/dL (0.2-1.0); CO2 31.2 mmol/L (21.0-32.0); Calcium 9.6 mg/dL (8.5-10.1); Calculated LDL 99 mg/dL (<100); Chloride 102 mmol/L (98-107); Cholesterol 170 mg/dL (<200); Estimated GFR 93.61 (mL/min/1.73m2); Glucose 99 mg/dL (74-106); HDL Cholesterol 43 mg/dL (>or=40); Potassium 4.3 mmol/L (3.5-5.1); Sodium 141 mmol/L (136-145); Total Protein 7.2 g/dL (6.4-8.2); Triglyceride 142 mg/dL (<150)
[2024-10-07 12:27] LABS: Testosterone, Free 8.56 ng/dL (3.47-13.0)
== END 2024-09-26 10:53 | disposition home or self-care (01) ==
LOC: NCHCN 10:52
PROVIDERS: PCP Family Medicine; Visit Provider Family Medicine
DX: I25.10 Atherosclerotic heart disease of native coronary artery without angina pectoris (principal); I10 Essential (primary) hypertension; R53.83 Other fatigue
CPT/HCPCS: 80053; 80061; 84402; 84403

== ENCOUNTER 2024-09-27 08:08 | Outpatient (REF) | payer MEDICARE, SELFPAY ==
[2024-09-27 16:39] LABS: COMMENT (LAB VIEW ONLY) 109.75 mg/dL; Microalb ug/mg Crea 36.4 ug/mg Cr
== END 2024-09-27 08:09 | disposition home or self-care (01) ==
LOC: NCHCN 08:08
PROVIDERS: PCP Family Medicine; Visit Provider Family Medicine
DX: I10 Essential (primary) hypertension (principal)
CPT/HCPCS: 82043; 82570

== ENCOUNTER 2025-01-28 13:47 | Outpatient (REF) | payer MEDICARE, SELFPAY ==
[2025-01-28 15:20] LABS: Hemoglobin A1C 6.1 % (<5.7)
[2025-01-28 15:39] LABS: ALT 39 U/L (16-63); AST 19 U/L (15-37); Albumin 4.2 g/dL (3.4-5.0); Alkaline Phosphatase 161 U/L (46-116); Anion Gap 9.6 mmol/L (3-11); BUN 17 mg/dL (7-18); Bilirubin, Total 0.7 mg/dL (0.2-1.0); CO2 28.4 mmol/L (21.0-32.0); Calcium 9.0 mg/dL (8.5-10.1); Chloride 101 mmol/L (98-107); Cholesterol 183 mg/dL (<200); Glucose 95 mg/dL (74-106); HDL Cholesterol 48 mg/dL (>or=40); Potassium 4.4 mmol/L (3.5-5.1); Sodium 139 mmol/L (136-145); Total Protein 7.5 g/dL (6.4-8.2)
== END 2025-01-28 13:48 | disposition home or self-care (01) ==
LOC: NCHCN 13:47
PROVIDERS: PCP Family Medicine; Visit Provider Family Medicine
DX: R73.03 Prediabetes (principal); I10 Essential (primary) hypertension; I25.10 Atherosclerotic heart disease of native coronary artery without angina pectoris
CPT/HCPCS: 80053; 80061; 83036

== ENCOUNTER 2025-02-20 13:43 | Outpatient (REF) | payer MEDICARE, SELFPAY ==
[2025-02-20 21:05] LABS: Iron 39 ug/dL (65-175); Total Iron Binding Capacity 378 ug/dL (250-425)
[2025-02-20 21:05] LABS: Ferritin 43 ng/mL (11-307)
[2025-02-26 17:02] LABS: Alkaline Phosphatase 152 U/L (40 - 129); Liver % 58.6 % (30.2-74.7)
== END 2025-02-20 13:44 | disposition home or self-care (01) ==
LOC: NCHCN 13:43
PROVIDERS: PCP Family Medicine; Visit Provider Family Medicine
DX: R74.8 Abnormal levels of other serum enzymes (principal); D64.9 Anemia, unspecified
CPT/HCPCS: 84075; 84080; 85027; 82728; 83540; 83550

== ENCOUNTER 2025-02-21 16:32 | Outpatient (REF) | payer MEDICARE, SELFPAY ==
[2025-02-21 21:14] LABS: HCT 38.9 % (40.0-50.0); HGB 12.2 g/dL (13.5-17.5); MCH 27.0 pg (27.0-33.0); MCHC 31.4 % (32.0-36.0); MCV 86 fL (80-95); MPV 9.9 fL (8.0-11.0); Platelet Count 300 10^3/uL (130-400); RBC 4.52 10^6/uL (4.36-5.78); RDW 14.1 % (11.8-14.1); RDW-SD 44.3 fL; WBC 6.39 10^3/uL (4.4-10.8)
== END 2025-02-21 16:33 | disposition home or self-care (01) ==
LOC: NCHCN 16:32
PROVIDERS: PCP Family Medicine; Visit Provider Family Medicine
DX: D64.9 Anemia, unspecified (principal)
CPT/HCPCS: 85027